=== PATIENT | male | born 1960 | race Caucasian/White ===

== ENCOUNTER 2017-10-12 11:35 | Outpatient (CLI) | payer OTHER ==
--- NOTE | 2017-10-12 18:58 | RAD ---
CHEST TWO VIEWS: 10/12/17 The lungs are mildly hyperexpanded but clear. No infiltrate or large effusion was seen. Minimal blunt ing of the right costophrenic angle is most likely chronic. The heart size is normal and the mediasti num was unremarkable. IMPRESSION: Slightly hyperexpanded lungs. Exam otherwise shows no acute findings. POS: HOME
== END 2017-10-12 11:36 | disposition home or self-care (01) ==
LOC: BURRAD 11:35
DX: J06.9 Acute upper respiratory infection, unspecified (principal)
CPT/HCPCS: 71046